=== PATIENT | male | born 1980 | race Caucasian/White ===

== ENCOUNTER 2016-04-25 01:11 | Inpatient (IN) | payer OTHER ==
[2016-04-25] VITALS (10 sets, daily range): BP systolic 132–157; RESP 18–20; TEMP 97.8–98.3; Ht 182.9 cm; Wt 79.7 kg
[~2016-04-25] VITALS: Ht 182.9 cm; Wt 79.7 kg
[2016-04-25] MEDS ORDERED: LORAZEPAM 0.5 MG TAB ONE ×4 (02:25→07:41)
[2016-04-25] MEDS ORDERED: ONDANSETRON 4 MG VIAL ONE ×2 (02:25→05:09)
[2016-04-25] MEDS ORDERED: MULTIVITS ADULT INJ 10 ML, THIAMINE 100 MG, FOLIC ACID INJ 1 MG in SODIUM CHLORIDE 0.9%... IV ONE ×3 (02:35)
[2016-04-25] MEDS ORDERED: KCL CR 20 MEQ TAB PO ONE (02:46)
[2016-04-25] MEDS ORDERED: SODIUM CHLORIDE 0.9% 1,000 ML ONE (05:09)
[2016-04-25] MEDS ORDERED: KCL 20 MEQ/15 ML UDC PO ONE (07:30)
[2016-04-25] MEDS ORDERED: MAGNESIUM SULF 1 GM/100 ML 100 ML IV ONE (07:30)
[2016-04-25] MEDS: ONDANSETRON 4 MG VIAL IV PRN ×3 (08:55→19:47)
[2016-04-25] MEDS: MULTIVITS/MINERALS (THERAGRAN M) TAB PO SCH (09:26)
[2016-04-25] MEDS: LORAZEPAM 2 MG/ML VIAL IV PRN ×5 (09:27→22:22)
[2016-04-25] MEDS: FOLIC ACID 1 MG TAB PO SCH (09:27)
[2016-04-25] MEDS: ENOXAPARIN 40 MG/0.4 ML SYR SUBQ SCH (09:27)
[2016-04-25] MEDS: D5-1/2-NS W/KCL 20MEQ/L 1,000 ML IV SCH ×2 (10:42→19:38)
[2016-04-25] MEDS: CHLORDIAZEPOXIDE 25 MG CAP PO PRN ×4 (11:06→19:47)
[2016-04-25] MEDS: TRAMADOL 50 MG TAB PO PRN (21:03)
[2016-04-26] VITALS (10 sets, daily range): BP systolic 129–160; RESP 16–20; TEMP 97.7–98.5
[2016-04-26] MEDS: CHLORDIAZEPOXIDE 25 MG CAP PO PRN (01:21)
[2016-04-26] MEDS: LORAZEPAM 2 MG/ML VIAL IV PRN ×2 (03:33→10:31)
[2016-04-26] MEDS: ONDANSETRON 4 MG VIAL IV PRN ×2 (03:33→08:40)
[2016-04-26] MEDS: D5-1/2-NS W/KCL 20MEQ/L 1,000 ML IV SCH ×2 (05:21→17:33)
[2016-04-26] MEDS: TRAMADOL 50 MG TAB PO PRN (05:39)
[2016-04-26] MEDS: FOLIC ACID 1 MG TAB PO SCH (08:15)
[2016-04-26] MEDS: ENOXAPARIN 40 MG/0.4 ML SYR SUBQ SCH (08:15)
[2016-04-26] MEDS: MULTIVITS/MINERALS (THERAGRAN M) TAB PO SCH (08:15)
[2016-04-26] MEDS: GABAPENTIN 300 MG CAP PO SCH ×3 (12:01→20:27)
[2016-04-26] MEDS: cloNIDine 0.1 MG TAB PO SCH ×3 (12:02→20:27)
[2016-04-26] MEDS: THIAMINE 100 MG TAB PO SCH (20:27)
[2016-04-26] MEDS ORDERED: risperiDONE 3 MG TAB PO SCH (21:00)
[2016-04-27 00:18] VITALS: BP_SYST 110; RESP 20
[2016-04-27 03:36] VITALS: BP_SYST 122; RESP 20
[2016-04-27] MEDS: D5-1/2-NS W/KCL 20MEQ/L 1,000 ML IV SCH (04:26)
[2016-04-27 07:24] VITALS: BP_SYST 124
[2016-04-27 07:25] VITALS: RESP 18; TEMP 97.7
[2016-04-27] MEDS: THIAMINE 100 MG TAB PO SCH (07:48)
[2016-04-27] MEDS: MULTIVITS/MINERALS (THERAGRAN M) TAB PO SCH (07:48)
[2016-04-27] MEDS: GABAPENTIN 300 MG CAP PO SCH (07:48)
[2016-04-27] MEDS: cloNIDine 0.1 MG TAB PO SCH (07:48)
[2016-04-27] MEDS: FOLIC ACID 1 MG TAB PO SCH (07:48)
[2016-04-27] MEDS: ENOXAPARIN 40 MG/0.4 ML SYR SUBQ SCH (07:49)
[2016-04-27 09:41] VITALS: BP_SYST 129; RESP 18; TEMP 97.4
[2016-04-27] MEDS: TRAMADOL 50 MG TAB PO PRN (10:02)
[2016-04-27 10:17] VITALS: BP_SYST 129; RESP 18; TEMP 97.4
[2016-04-28] MEDS ORDERED: THIAMINE 100 MG in SODIUM CHLORIDE 0.9% 50 ML IV SCH (09:00)
== END 2016-04-27 11:13 | disposition home or self-care (01) | DRG 897 ==
LOC: ER 01:11 → ENPENDDIS 07:48 → EMR 07:48 → 3NT 08:34
PROVIDERS: ADMIT Internal Medicine; ATTEND Internal Medicine
DX: F10.239 Alcohol dependence with withdrawal, unspecified (principal); F32.9 Major depressive disorder, single episode, unspecified; F43.10 Post-traumatic stress disorder, unspecified; F41.9 Anxiety disorder, unspecified; Z86.11 Personal history of tuberculosis; R79.89 Other specified abnormal findings of blood chemistry
CPT/HCPCS: 36415; 80053; 80076; 80307; 80320; 80329; 81001; 82150; 82607; 83735; 84100; 84425; 84439; 84443; 85025; 85610; 86480; 86701; 86704; 86705; 86706; 86708; 86709; 93306; 94799; 99233